=== PATIENT | male | born 1995 | race Caucasian/White ===

== ENCOUNTER 2017-02-11 19:02 | Emergency (ER) | payer SELFPAY ==
[~2017-02-11] VITALS: Ht 175.3 cm; Wt 83.5 kg
[2017-02-11 20:19] VITALS: BP 130/87
== END 2017-02-11 20:19 | disposition home or self-care (01) ==
LOC: ED 19:02
DX: R07.89 Other chest pain (principal); R06.02 Shortness of breath; R05 Cough
CPT/HCPCS: J1885

== ENCOUNTER 2019-03-17 13:21 | Emergency (ER) | payer OTHER | END 2019-03-17 14:24 | disposition other institution (70) | LOC: ED 13:21 | DX: Z02.89 Encounter for other administrative examinations (principal) ==

== ENCOUNTER 2019-03-17 13:21 | Emergency (ER) | payer SELFPAY ==
[~2019-03-17] VITALS: Ht 175.3 cm; Wt 77.1 kg
[2019-03-17 13:28] VITALS: Ht 175.3 cm; Wt 77.1 kg
[2019-03-17 14:24] VITALS: BP 120/67
== END 2019-03-17 14:24 | disposition other institution (70) ==
LOC: ED 13:21
DX: S09.8XXA Other specified injuries of head, initial encounter (principal); Z88.0 Allergy status to penicillin; Z88.1 Allergy status to other antibiotic agents; Z88.8 Allergy status to other drugs, medicaments and biological substances; V43.52XA Car driver injured in collision with other type car in traffic accident, initial encounter; Y93.I9 Activity, other involving external motion; Y92.481 Parking lot as the place of occurrence of the external cause; Y99.8 Other external cause status